=== PATIENT | male | born 1960 | race African-American/Black ===

== ENCOUNTER 2017-01-11 08:27 | Observation (INO) ==
[2017-01-11] MEDS ORDERED: METOPROLOL TARTRATE 5 MG/5 ML VIAL IV STA (09:02)
[2017-01-11] MEDS ORDERED: ASPIRIN 325 MG TABLET PO STA (09:02)
--- NOTE | 2017-01-11 09:05 | EKG Report ---
Stationary ECG Study [facility] ER Test Date: 01/11/2017 8:38:11 AM Pat Name: CIERA MIN Department: Room: Gender: M Baker: : 1960 Requested by: Ronan Rubio Order Number: [id number] Reading MD: DAMIR KELLEY Intervals [place] Rate: 68 P: 51 [place]: 171 QRS: -16 QRSD: 113 T: -9 QT: 358 QTc: 375 Interpretive Statements SINUS RHYTHM MODERATE INTRAVENTRICULAR CONDUCTION DELAY NONSPECIFIC T-WAVE ABNORMALITY Electronically Signed On 01-11-17 16:18:41 Z OS MAINFRAME SYSTEMS PROGRAMMER by DAMIR KELLEY [email or web address]
[2017-01-11 09:16] LABS: Basophils % 0.6 % (0.0-0.8); Eosinophils # 0.1 10*3/uL (0.0-0.87); Eosinophils % 1.6 % (0.00-10.9); Hematocrit 42.2 VOL% (42.0-52.0); Hemoglobin 13.9 GM/DL (14.0-18.0); Immature Granulocytes % 0.3 %; Immature Granulocytes Absolute 0.02 #; Lymphocytes # 2.2 10*3/uL (1.4-4.0); Mean Corpuscular HGB Conc 32.9 GM/DL (32-36); Mean Corpuscular Hemoglobin 27 PG (27-34); Mean Corpuscular Volume 80.7 FL (87-102); Mean Platelet Volume 9.5 FL (9.6-12.0); Monocytes # 0.5 10*3/uL (0.11-0.8); Monocytes % 8.3 % (1.7-12.7); Neutrophils # 3.4 10*3/uL (1.4-7.4); Neutrophils % 54.2 % (38.7-73.9); Platelet Count 289 T/CUMM (130-400); Red Blood Count 5.23 MC/CUMM (3.8-5.5); Red Cell Distribution Width 14.8 % (9.3-17.3); White Blood Count 6.4 T/CUMM (4-12)
--- NOTE | 2017-01-11 09:24 | Emergency Department Note ---
Jah Cunningham Meredith, am scribing for, and in the presence of, Ronan Marcos MD 09: 01. Priti Cunningham James D, MD, personally performed the services described in this documentation, ascribed by Malena Tyson in my presence, and it is both accurate and complete 922 . Arrival - Arrival Chief Complaint: Chest Pain Stated Complaint: chest and back pain ED Nursing Triage Note: pt reports low back pain x 1 week. also reports he woke up this am with chest pain. denies sob or diaphoresis. Mode of Arrival: Ambulatory Limitations: No Limitations Source: Patient, Old Records Reviewed, RN Notes Reviewed Time Seen by Provider: 01/11/17 08:57 - History of Present Illness HPI Narrative: Pt is a 56 y/o black male reporting to the ED with c/o low back pain for the past week. He woke this morning with sharp chest pain. The pain is worse with exertion and deep inspiration. Pt denies any shortness of breath, diaphoresis, nausea, dysuria, or urinary frequency. He has a history of HTN and HLD. Onset (ago): week(s) Allergies/Adverse Reactions: Allergies Allergy/AdvReac Type Severity Reaction Status Date / Time No Known Allergies Allergy Unverified 01/11/17 08:55 Review of System - Review of System 12 point system: reviewed and no additional remarkable complaints except as stated - Review of System Constitutional: Present: as per HPI. Absent: diaphoresis Respiratory: Present: as per HPI. Absent: respiratory distress Cardiovascular: Present: as per HPI, chest pain Gastrointestinal: Present: as per HPI. Absent: nausea Genitourinary male: Present: as per HPI. Absent: dysuria, frequency Musculoskeletal: Present: as per HPI, lower back pain Medical,Surgical,& Family Hx - Medical History Cardio: History of: Hypertension Endocrine: History of: Dyslipidemia - Surgical History Abdominal Surgeries: Patient denies: Splenectomy - Family History Family History: Denies;: Additional Family History - Social History Smoking Status: Never smoker Exam Physical Examination: GENERAL: This is an obese black male in no apparent distress. VITAL SIGNS: Temperature: 97.1, Pulse: 85, Respirations: 20, Blood pressure: 134 /87, O2 Saturation: 99 HEENT: Head is normocephalic and atraumatic. Pupils are equally round and reactive to light. Extraocular movement are intact. Bilateral arcus senilis. Oropharynx is benign with moist mucous membranes. NECK: Neck is soft and supple without tenderness. There are no masses. There is no lymphadenopathy. LUNGS: Lungs are clear to auscultation bilaterally. Chest rises symmetrically. There is no chest wall tenderness. CV: Heart is regular rate and rhythm without murmurs, rubs, or gallops. ABDOMEN: Abdomen is soft, non-tender to palpation. There are no abnormal masses palpated. There is no organomegaly. Bowel sounds are present and active. SKIN: Skin is warm and dry. No rash. EXTREMITIES: Patient has full range of motion without tenderness. There is no pedal edema. NEUROLOGIC: Awake, alert, and oriented x4. Cranial nerves II through XII are grossly intact. There are no motorsensory deficits. PSYCHIATRIC: Normal affect. Normal mood. Vital Signs: Vital Signs Temperature 97.1 F L 01/11/17 09:03 Pulse Rate 85 01/11/17 09:03 Respiratory Rate 20 01/11/17 09:03 Blood Pressure 134/87 01/11/17 09:03 O2 Sat by Pulse Oximetry 99 01/11/17 08:34 Course - Consultations Consultation #1: Discussed with hospitalist. Patient will be admitted to their service. Time: 10:20 Results - Labs CBC & BMP: 01/11/17 08:50 01/11/17 08:50 Lab Results: I have reviewed the patients labs Labs: Laboratory Tests 01/11/17 08:50 WBC 6.4 RBC 5.23 Hgb 13.9 L Hct 42.2 MCV 80.7 L Plt Count 289 MPV 9.5 L Laboratory Tests 01/11/17 01/11/17 01/11/17 08:50 08:50 08:50 INR 1.0 PT Patient/Control Mix 10.4 Circ Anticoag PTT 30.6 Sodium 146 H Potassium 4.3 Chloride 111 H Carbon Dioxide 24 Anion Gap 15.3 H BUN 13 Creatinine 1.00 Troponin I 0.020 Globulin 3.6 H Albumin/Globulin Ratio 0.9 L - EKG EKG results: interpreted by ERMD - Impressions EKG: Normal sinus rhythm with a rate of 68, nonspecific intraventricular conduction delay, nonspecific ST-T wave changes. - Diagnostic Findings Procedure: X-ray: report reviewed by me (L-spine: 1. Degenerative spondylosis with mild intervertebral disc space narrowing at L5/L1. 2. 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 ) Disposition Clinical Impression: Chest pain, Low back pain Case discussed with: patient Condition: Stable
[2017-01-11 09:28] LABS: Alanine Aminotransferase 33 U/L (16-61); Albumin 3.5 G/DL (3.4-5.0); Alkaline Phosphatase 62 U/L (45-117); Aspartate Amino Transferase 28 U/L (0-37); Bilirubin,Total < 0.39 MG/DL (0.2-1.0); Blood Urea Nitrogen 13 MG/DL (7-18); Calcium 8.8 MG/DL (8.5-10.1); Glucose 103 MG/DL (74-106); Osmolality,Calculated 289.6 MOS/KG (273-304); Potassium 4.3 MMOL/L (3.5-5.1); Sodium 146 MMOL/L (136-145); Total Protein 7.1 G/DL (6.4-8.3)
--- NOTE | 2017-01-11 09:29 | XRay Report ---
Exam: Chest 2 views Date: 01/11/2017 9:02 AM Indication: Chest pain Comparison study: None Findings: External cardiac leads are present. The heart, lungs, mediastinum, and bony structures are intact. Impression: 1. No acute cardiopulmonary pathology PROCEDURE INTERPRETED AT [facility] DEPARTMENT OF RADIOLOGY Final Report Signed by: Dr. Darell Cope
[2017-01-11 09:30] LABS: PT Patient Result 10.4 SECS; Partial Thromboplastin Time 30.6 SECS (0-40)
--- NOTE | 2017-01-11 09:32 | XRay Report ---
Exam: XR lumbar spine complete Date: 01/11/2017 9:03 AM Indication: Low back pain Comparison: None Technical: AP lateral bilateral oblique coned-down image 5 views Findings: 5 lumbar vertebral segments are present. Degenerative spondylosis change present with attempted bridging syndesmophyte at L3-4 L4-5 to a lesser degree L2-3. There is disc space narrowing at L5-S1. Slight anterolisthesis of L5 with respect to S1. Incomplete pars defect suspected on the left at L5 Vertebral body heights are maintained the posterior elements and transverse processes are unremarkable. The liver spleen and renal shadows are not well seen. Nonspecific GI pattern is present. Phleboliths in the right true pelvis. Impression: 1. Degenerative spondylosis with mild intervertebral disc space narrowing at L5-S1 2. 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 Darell Cope
[2017-01-11] MEDS ORDERED: ASPIRIN 325 MG TABLET ONE (10:39)
[2017-01-11 10:52] LABS: Apearance,Urine CLEAR (Clear); Bilirubin,Urine Negative (Negative); Blood, Urine Negative (Negative); Glucose,Urine (UA) Negative (Negative); Ketones,Urine Negative (Negative); Mucus,Urine Occasional /LPF (Occasional); Nitrite,Urine Negative (Negative); Protein,Urine Negative; Urine Color Yellow (Yellow); Urine Specific Gravity 1.015 (1.001-1.035); Urine Urobilinogen < 2.0 EU/DL (0.2-1.0)
[2017-01-11 10:58] LABS: Barbiturates Screen,Urine Negative (Negative); Benzodiazepines Screen,Urine Negative (Negative); Cannabinoid Screen,Urine Negative (Negative); Opiate Screen,Urine Negative (Negative); Phencyclidine Screen,Urine Negative (Negative)
[2017-01-11] MEDS ORDERED: ZALEPLON 5 MG CAPSULE PO PRN (12:46)
[2017-01-11] MEDS ORDERED: DOCUSATE SODIUM 100 MG CAPSULE PO PRN (12:46)
[2017-01-11] MEDS ORDERED: MORPHINE 2 MG/1 ML SYRINGE IV PRN (12:46)
[2017-01-11] MEDS ORDERED: ACETAMINOPHEN 325 MG TABLET PO PRN (12:46)
[2017-01-11] MEDS ORDERED: ONDANSETRON 4 MG/2 ML VIAL IV PRN (12:46)
[2017-01-11] MEDS ORDERED: ALUM/MAG/SIMETH/LIDO VISC 1:1 30 ML BOTTLE PO PRN (12:48)
[2017-01-11] MEDS ORDERED: MAGNESIUM HYDROXIDE SUSP 30 ML UDCUP PO PRN (12:48)
[2017-01-11] MEDS ORDERED: NITROGLYCERIN SL 0.4 MG TABLET SL PRN (12:48)
--- NOTE | 2017-01-11 12:51 | Hospitalist History & Physical ---
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 Norvasc and Lipitor po. Current Visit: Yes Qualifiers: Chest pain type: other chest pain Qualified Code(s): R07.89 - Other chest pain; R07.8 - Other chest pain History of Present Illness Chief complaint: Chest pain History of present illness: Mr. Rodriguez is a 56 year old male with history of HTN. States he started having chest pain this am, mid sternal without nausea or vomiting and no diaphoresis. States the pain is sharp without radiation. Does not change with movement. Home Medications Medication Instructions Recorded Confirmed Type Atorvastatin [Lipitor] 20 mg PO DAILY 01/11/17 01/11/17 History amLODIPine [Norvasc] 10 mg PO DAILY 01/11/17 01/11/17 History Allergies Allergy/AdvReac Type Severity Reaction Status Date / Time No Known Allergies Allergy Unverified 01/11/17 08:55 Medical,Surgical,& Family Hx - Medical History Cardio: History of: Hypertension No history of: CHF, NM Neurology: No history of: Seizures, Vertigo Endocrine: History of: Dyslipidemia No history of: Diabetes Mellitus (NIDDM), Thyroid Disorder Respiratory: No history of: Asthma, COPD - Surgical History Abdominal Surgeries: Patient denies: Appendectomy, Splenectomy Additional Surgical History: No surgical history - Family History Family History: Denies;: Additional Family History - Social History Smoking Status: Never smoker Have you smoked in the last 12 months: No - Constitutional Constitutional: Absent: chills, fever(s), headache(s) - EENT Nose, mouth and throat: Absent: headache(s), nasal congestion, sore throat - Cardiovascular Cardiovascular: Present: chest pain at rest. Absent: dyspnea, edema - Respiratory Respiratory: Absent: cough, dyspnea, wheezing - Gastrointestinal Gastrointestinal: Absent: abdominal pain, diarrhea, nausea, vomiting - Genitourinary Genitourinary: Absent: difficulty urinating Exam - Constitutional Vitals: Period Temp Pulse Resp BP Sys/Omdi Pulse Ox Last 24 Hr 56-78 14-18 131-148/88-95 95-98 General appearance: no no acute distress - Head Head exam: Absent: normocephalic - Eye Pupils: Present: JESE - ENT ENT exam: Present: normal exam - Neck Neck exam: Present: normal inspection. Absent: lymphadenopathy, tenderness, thyromegaly - Respiratory Respiratory exam: Present: clear to auscultation bilaterally. Absent: accessory muscle use, chest wall tenderness, rales, rhonchi, wheezes - Cardiovascular Cardiovascular exam: Present: regular rate and rhythm - GI/Abdominal GI/Abdominal exam: Present: soft. Absent: guarding, tenderness, rebound - Extremities Exam Extremities exam: Present: normal inspection. Absent: edema - Neurological Exam Neurological exam: Present: alert, oriented X3, CN II-XII intact - Psychiatric Psychiatric exam: Present: normal affect Results - Labs CBC & BMP: 01/11/17 08:50 01/11/17 08:50 - EKG EKG shows: bradycardia - Diagnostic Findings Procedure: Chest x-ray: report reviewed by me (Normal) <Rosalinda Dominguez - Last Filed: 01/11/17 18:32> Assessment and Plan (1) HTN (hypertension) Status: Acute Assessment and plan: continue home meds Current Visit: Yes Qualifiers: Hypertension type: essential hypertension Qualified Code(s): I10 - Essential (primary) hypertension (2) Hyperlipidemia Status: Acute Assessment and plan: continue statin Current Visit: Yes (3) Chest pain Status: Acute Current Visit: Yes Qualifiers: Chest pain type: other chest pain Qualified Code(s): R07.89 - Other chest pain; R07.8 - Other chest pain (4) Low back pain Status: Acute Current Visit: Yes History of Present Illness History of present illness: Mr. Rodriguez is a 56 year old male with a history of hypertension and hyperlipidemia that was admitted through the emergency department with chest pain. Pain began suddenly at rest at 3 a.m. and lasted for approximately 5 hours. It did not radiate. It was not associated with diaphoresis. There was no numbness or tingling. He's never had chest pain or cardiac workup. He drives a truck. Primary care physician and residence in [facility]. Exam - Constitutional Vitals: Period Temp Pulse Resp BP Sys/Modi Pulse Ox Last 24 Hr 97.1 F 55-78 14-20 131-179/79-97 95-99 - Respiratory Respiratory exam: Present: clear to auscultation bilaterally - Cardiovascular Cardiovascular exam: Present: regular rate and rhythm - GI/Abdominal GI/Abdominal exam: Present: normal bowel sounds, soft - Extremities Exam Extremities exam: Present: normal inspection, full ROM. Absent: edema - Neurological Exam Neurological exam: Present: alert, oriented X3 - Psychiatric Psychiatric exam: Present: normal affect, normal mood - Skin Skin exam: Present: normal color, warm, dry Results - Labs CBC & BMP: 01/11/17 08:50 01/11/17 08:50 Lab Results: I have reviewed the past 24 hour labs
[2017-01-11] MEDS ORDERED: ENOXAPARIN 40 MG/0.4 ML SYRINGE SUBCUT SCH (13:00)
--- NOTE | 2017-01-11 14:31 | EKG Report ---
Stationary ECG Study [facility] Test Date: 01/11/2017 2:30:47 PM Pat Name: CIERA MIN Department: Room: 294 Gender: M Radiologic Electronic Specialist: JUNG : 1960 Requested by: Rosalinda Dominguez Order Number: [id number] Reading MD: DAMIR KELLEY Intervals [place] Rate: 46 P: 40 PA: 146 QRS: 17 QRSD: 113 T: -60 QT: 387 QTc: 346 Interpretive Statements SINUS BRADYCARDIA INDETERMINATE AXIS MODERATE INTRAVENTRICULAR CONDUCTION DELAY ST DEVIATION AND MODERATE T-WAVE ABNORMALITY, CONSIDER INFERIOR ISCHEMIA INTERPRETATION BASED ON A DEFAULT AGE OF 40 YEARS Electronically Signed On 01-11-17 16:22:29 PRODUCTION OPERATIONS ENGINEER by DAMIR KELLEY [email or web address]
--- NOTE | 2017-01-11 16:22 | EKG Report ---
Stationary ECG Study [facility] Test Date: 01/11/2017 4:16:31 PM Pat Name: CIERA MIN Department: Room: EDVTIT Gender: M School Custodian: : 1960 Requested by: Rosalinda Dominguez Order Number: [id number] Reading MD: DAMIR KELLEY Intervals [place] Rate: 52 P: 46 [place]: 174 QRS: 21 QRSD: 117 T: -35 QT: 395 QTc: 374 Interpretive Statements SINUS BRADYCARDIA WITH SINUS ARRHYTHMIA INDETERMINATE AXIS MODERATE INTRAVENTRICULAR CONDUCTION DELAY Electronically Signed On 01-11-17 16:23:10 STONE CARVER by DAMIR KELLEY [email or web address]
--- NOTE | 2017-01-11 20:36 | EKG Report ---
Stationary ECG Study [facility] Test Date: 01/11/2017 8:34:51 PM Pat Name: CIERA MIN Department: Room: 294 Gender: M Holistic Nutritionist: Alo : 1960 Requested by: Rosalinda Dominguez Order Number: [id number] Reading MD: MAYO RODRIGUEZ Intervals [place] Rate: 51 P: 52 MS: 182 QRS: 4 QRSD: 120 T: -17 QT: 382 QTc: 359 Interpretive Statements SINUS BRADYCARDIA NONSPECIFIC INTRAVENTRICULAR CONDUCTION DELAY NONSPECIFIC T WAVE ABNORMALITY SHORT QT INTERVAL Electronically Signed On 01-11-17 20:46:41 CHEMICAL COMPOUNDER by MAYO RODRIGUEZ [email or web address]
[2017-01-12 06:06] LABS: Calcium 8.9 MG/DL (8.5-10.1); Osmolality,Calculated 285.1 MOS/KG (273-304); Potassium 4.4 MMOL/L (3.5-5.1); Risk Ratio 2.91; Thyroid Stimulating Hormone 3.08 uIU/ml (0.358-3.74); VLDL CHOLESTEROL 43.6 MG/DL
--- NOTE | 2017-01-12 08:29 | Discharge Summary ---
Hospital Course - Hospital Course Hospital Course: 56-year-old -[place] male admitted to the hospital for observation for chest pain. The patient has had negative cardiac enzymes. His lipid panel was reviewed. He is already on a statin and blood pressure agent. 81 mg aspirin was added to his daily regimen. He is encouraged to follow-up with cardiology in [facility], where he resides, for stress test evaluation. The patient is not diabetic and is not a smoker. Symptoms resolved in the emergency department and have not reoccurred since his admission. He is in stable condition and ready for discharge home. Diet and exercise were discussed as well as weight loss. The patient verbalizes his understanding of his diagnosis and follow-up plan. Protonix was added to his home medication regimen. - Time spent with patient Time with patient DS: Less than 30 minutes Diagnosis - Discharge Diagnosis (1) HTN (hypertension) Status: Chronic (2) Hyperlipidemia Status: Chronic (3) Chest pain Status: Resolved (4) Low back pain Status: Acute Discharge Plan - Discharge Data Disposition: Disch To Home/Self Care Condition at Discharge: Stable Discharge Diet: advance to your usual diet Activity: resume usual activities as tolerated Hygiene: no restrictions - Discharge Medications New Aspirin EC Tab 81 mg PO DAILY tablet Pantoprazole Tab [Protonix Tab] 40 mg PO DAILY #30 tablet Continue amLODIPine [Norvasc] 10 mg PO DAILY Atorvastatin [Lipitor] 20 mg PO DAILY - Follow Up or Referral - Forms/Instructions Exam - Constitutional Vitals: Period Temp Pulse Resp BP Sys/Modi Pulse Ox Last 24 Hr 97.1 F-98.5 F 55-78 14-20 120-179/71-97 95-99 General appearance: no acute distress - Head Head exam: Present: normal inspection, normocephalic, atraumatic - Eye Eye exam: Present: EOMI - Respiratory Respiratory exam: Present: clear to auscultation bilaterally - Cardiovascular Cardiovascular exam: Present: regular rate and rhythm - GI/Abdominal GI/Abdominal exam: Present: normal bowel sounds, soft Discharge Results Labs on day of discharge: Labs from last 24 hours 01/12/17 01/11/17 01/11/17 04:12 17:06 13:59 Sodium 142 Potassium 4.4 Chloride 106 Carbon Dioxide 28 Anion Gap 12.4 BUN 15 Creatinine 1.00 GFR Calculation 134 BUN/Creatinine Ratio 15.00 Glucose 126 H Calculated Osmolality 285.1 Calcium 8.9 Magnesium 2.0 Troponin I 0.018 0.019 Triglycerides 218 H Cholesterol 157 LDL Cholesterol 82.0 VLDL Cholesterol 43.6 HDL Cholesterol 54 Heart Disease Risk Ratio 2.91 TSH 3rd Generation 3.080 DS: Provider Date of admission: 01/11/17 11:07 Primary care physician: . No PCP Attending physician on admission: Brayan Fuller NP Consults: 01/11/17 13:29 Consult to Pharmacy [CONS] Routine Reason for Pharmacy Consult: Adjust Meds Renal Funct Discharging clinician: Rosalinda Dominguez MD Expected date of discharge: 01/12/17
[2017-01-12 08:34] VITALS: BP 139/80
[2017-01-12] MEDS ORDERED: amLODIPine 10 MG TABLET PO SCH (09:00)
[2017-01-12] MEDS ORDERED: ATORVASTATIN 20 MG TABLET PO SCH (09:00)
[2017-01-12] MEDS ORDERED: ASPIRIN EC 81 MG TABLET PO SCH (09:00)
[2017-01-12] MEDS ORDERED: PANTOPRAZOLE 40 MG TABLET PO SCH (09:00)
== END 2017-01-12 10:36 | disposition home or self-care (01) ==
LOC: N.ED 08:27 → SUATTDRO 11:07 → INTOOBSV 11:07 → N.EDINP 11:07 → N.TELEN 12:35
PROVIDERS: ADMIT Nurse Practitioner; ATTEND Family Medicine